=== PATIENT | male | born 1985 | race Caucasian/White ===

== ENCOUNTER 2023-06-24 10:11 | Emergency (ER) | payer OTHER, SELFPAY ==
--- NOTE | ~2023-06-24 | CT_ITS ---
EXAMINATION: CT facial & cervical spine wo DATE: 06/24/2023 10:53 INDICATION: Syncope. Head injury. TECHNIQUE: Computed tomography (CT) of the maxillofacial region and cervical spine was performed with out intravenous contrast. Automated exposure control and iterative reconstruction technique were empl oyed. The dose-length product was 762.31 mGy-cm. COMPARISON: None FINDINGS: MAXILLOFACIAL CT: There is mild mucosal thickening in the paranasal sinuses. There is leftward deviation of the nasal s eptum. There are nondisplaced fractures of the nasal bones. The mastoid air cells are normal. CERVICAL SPINE CT: Bone alignment is normal. Vertebral body heights are normal. Intervertebral disc heights are normal. The following disc levels are specifically discussed: C2-C3: There is severe right and moderate left uncovertebral joint osteoarthritis. There is mild bila teral facet joint osteoarthritis. There is no neural foraminal stenosis. There is no central canal st enosis. C3-C4: There is mild right and moderate left uncovertebral joint osteoarthritis. There is moderate ri ght and mild left facet joint osteoarthritis. There is mild left neural foraminal stenosis. There is no central canal stenosis. C4-C5: There is mild bilateral uncovertebral joint osteoarthritis. There is mild bilateral facet join t osteoarthritis. There is no neural foraminal stenosis. There is no central canal stenosis. C5-C6: There is mild bilateral uncovertebral joint osteoarthritis. There is mild bilateral facet join t osteoarthritis. There is no neural foraminal stenosis. There is no central canal stenosis. C6-C7: There is mild left uncovertebral joint osteoarthritis. There is severe right and mild left fac et joint osteoarthritis. There is mild right neural foraminal stenosis. There is no central canal david nosis. C7-T1: There is severe right and mild left uncovertebral joint osteoarthritis. There is mild bilatera l facet joint osteoarthritis. There is moderate right and mild left neural foraminal stenosis. There is no central canal stenosis. IMPRESSION: 1. Nondisplaced fractures of the nasal bones. 2. Mild cervical spondylosis. Reviewed, dictated and finalized at location A. RT COORDINATOR
--- NOTE | ~2023-06-24 | CT_ITS ---
EXAMINATION: CT brain wo con INDICATION: Head injury COMPARISON: 12/10/2017 TECHNIQUE: Standard unenhanced head CT. The dose-length product (DLP) was 681.00 mGy-cm. The mA was a djusted according to patient size. Iterative reconstruction technique was employed. FINDINGS: No intracranial hemorrhage, acute infarction, or abnormal mass lesion. The ventricles are n ormal. No abnormal mass effect or midline shift. The benitez-white matter differentiation is normal. The basal cisterns are patent. The orbits are normal. There are polyps or mucous retention cysts of the maxillary sinuses. There is a frontal scalp hematoma. IMPRESSION: 1. No acute intracranial abnormality. Reviewed, dictated and finalized at location B. OSITION PLAYER
--- NOTE | ~2023-06-24 | XR_ITS ---
EXAMINATION: XR wrist RT min 3V INDICATION: Right wrist pain TECHNIQUE: Four views of the right wrist are obtained. COMPARISON: None available FINDINGS: No fracture, dislocation, or subluxation. The bones, soft tissues, and joint spaces are nor mal. IMPRESSION: 1. No acute osseous abnormality. Reviewed, dictated and finalized at location B. R PRINTED CIRCUIT LAYOUT
[2023-06-24 10:20] VITALS: BP 142/71; PULSE 79; RESP 16; TEMP 36.6; O2SAT 100
--- NOTE | 2023-06-24 10:33 | ECG_ITS ---
Measurements Intervals [place] Rate: 78 P: 39 TN: 176 QRS: 26 QRSD: 106 T: 26 QT: 407 QTc: 464 Interpretive Statements SINUS RHYTHM NORMAL ELECTROCARDIOGRAM NO PREVIOUS ECG AVAILABLE FOR COMPARISON Electronically Signed On 06-24-2023 18:24:25 PERSONAL INJURY ATTORNEY by Shabbir Graham M.D.
--- NOTE | 2023-06-24 11:06 | ED.SYNCOPE ---
HPI - Syncope General Chief Complaint: Syncope Stated Complaint: syncope Time Seen by Provider: 06/24/23 10:13 Source: patient Mode of arrival: EMS Limitations: no limitations History of Present Illness HPI narrative: Patient is a 38 y/o male who presents to the ED via EMS with report of syncope. Patient reports he was picking up a family member at [facility] today and the nurse for his family member asked him to leave the room so she could change his family members bandages for her sutures. Patient left the room, but began feeling lightheaded, nauseous, sweaty. He states he called out for help, but the next thing he knew, he woke up on the ground. He did hit his head and sustained contusion to forehead and nose. Witnesses did confirm syncopal episode with 30 seconds to 1 minute LOC. no seizure-like activity. No postictal state. EMS was then called. Patient does still feel somewhat lightheaded currently, c/o headache, mild nausea, pain to R wrist. Denies neck or back pain, focal weakness or numbness, vision changes, chest pain, shortness of breath. Patient mentions he has had similar syncopal episodes in the past with exposure to blood. Related Data Allergies Allergy/AdvReac Type Severity Reaction Status Date / Time doxycycline Allergy Intermediate Unknown Verified 06/24/23 12:26 venom-honey bee Allergy Unknown Unknown Verified 06/24/23 12:26 milk Allergy Unknown Verified 06/24/23 12:26 shellfish derived Allergy Anaphylaxis Verified 06/24/23 12:26 wheat Allergy Unknown Verified 06/24/23 12:26 Penicillins AdvReac Itching Verified 06/24/23 12:26 Review of Systems Review of Systems: CONSTITUTIONAL: Denies fever, chills, or sweats. ENT: Denies vision changes CARDIOVASCULAR: Denies chest pain. RESPIRATORY: Denies dyspnea. GASTROINTESTINAL: See HPI MUSCULOSKELETAL: See HPI NEUROLOGIC: See HPI. All systems reviewed & are unremarkable except as noted in HPI and below PMFSH Social History Social History Smoking status: Never smoker Exam Narrative: GENERAL: Well appearing, morbidly obese with BMI 46.0, non-toxic, in no acute distress. HEAD: Normocephalic. Contusion to forehead with small abrasion, contusion to bridge of nose with minimal abrasion. No active bleeding. EENT: PERRL/EOMI, conjunctiva clear. Mild swelling and tenderness noted to bridge of nose. No septal hematoma or active epistaxis. NECK: Neck is supple. No midline spinal tenderness. RESPIRATORY: Airway patent, respirations nonlabored. Clear to auscultation bilaterally, no rales, rhonchi, wheezing. CARDIOVASCULAR: Regular rate and rhythm without murmurs, rubs, or gallops. MUSCULOSKELETAL: Moves all extremities. No gross deformities. Tenderness to palpation over right distal radius, no palpable deformities, no significant swelling or bruising. No midline thoracic or lumbar spinal tenderness. SKIN: Warm, dry, normal color. NEURO: A&O X3. Speech clear. Cranial nerves II-XII grossly intact. Steady gait. No ataxic movements. No focal neurologic deficits. Equal home worker no pronator drift. Strength equal in upper and lower extremities bilaterally. PSYCHIATRIC: Appropriate mood and affect. Normal interaction. Course Vital Signs Vital signs: Vital Signs Temperature 97.9 F 06/24/23 10:20 Pulse Rate 79 06/24/23 10:20 Respiratory Rate 16 06/24/23 10:20 Blood Pressure 142/71 H 06/24/23 10:20 Pulse Oximetry 100 06/24/23 10:20 Oxygen Delivery Room Air 06/24/23 10:20 Temperature 97.9 F 06/24/23 10:20 Pulse Rate 78 06/24/23 12:32 Respiratory Rate 16 06/24/23 12:32 Blood Pressure 118/66 06/24/23 12:32 Pulse Oximetry 99 06/24/23 12:32 Oxygen Delivery Room Air 06/24/23 10:20 MDM - Syncope MDM Narrative Medical decision making narrative: Patient presented to ED status post syncopal episode, associated with dizziness/lightheadedness and nausea, head i
[2023-06-24] MEDS: SODIUM CHLORIDE 0.9% IV 1,000 ML 999 ML IV CONT ×2 (11:07→11:08)
[2023-06-24] MEDS: ONDANSETRON INJ 4 MG/2 ML VIAL IV PUSH (11:08)
[2023-06-24 11:10] LABS: Glucose Point of Care 162 mg/dl (65-105)
[2023-06-24 11:16] LABS: Basophils Absolute Auto 0.1 K/mm3 (0.0-0.1); Basophils Percent Auto 0.6 % (0.2-1.2); Eosinophils Absolute Auto 0.2 K/mm3 (0-0.3); Eosinophils Percent Auto 2.7 % (0-4.4); Hematocrit 39.7 % (42.0-52.0); Hemoglobin 13.2 g/dL (14.0-18.0); Immature Granulocyte Absolute 0.02 K/mm3 (0.00-0.031); Immature Granulocyte Percent A 0.2 % (0-0.5); Lymphocytes Absolute Auto 1.67 K/mm3 (0.9-3.2); Lymphocytes Percent Auto 20.6 % (18.3-44.2); Mean Corpuscular HGB Conc 33.2 g/dl (32-36); Mean Corpuscular Hemoglobin 26.8 pg (26-34); Mean Corpuscular Volume 80.7 fl (80-100); Mean Platelet Volume 11.5 fl (7.4-10.4); Monocytes Absolute Auto 0.7 K/mm3 (0.1-0.6); Monocytes Percent Auto 8.3 % (2.6-8.5); Neutrophils Absolute Auto 5.5 K/mm3 (1.3-6.7); Neutrophils Percent Auto 67.6 % (45.5-73.1); Platelet Count Result 208 k/mm3 (150-375); Red Blood Count 4.92 M/mm3 (4.6-6.20); Red Cell Distribution Width 13.7 % (11.5-14.5); White Blood Count 8.1 K/mm3 (4.5-10.0)
[2023-06-24 11:30] LABS: Alanine Aminotransferase 36 U/L (6-50); Albumin Level 4.4 g/dL (3.5-5.1); Alkaline Phosphatase 72 U/L (38-126); Anion Gap 5 mmol/L (8-16); Aspartate Amino Transferase 31 U/L (17-59); Bilirubin,Total 1.2 mg/dL (0.2-1.3); Blood Urea Nitrogen 13 mg/dL (9-20); Calcium 9.4 mg/dL (8.4-10.2); Carbon Dioxide 31 mmol/L (22-30); Chloride 101 mmol/L (98-107); Estimated CRCL calculation 203 ml/min; Estimated Glomerular Filt Rate > 60; Glucose 153 mg/dL (65-110); Lactic Acid Reflex 2.1 mmol/L (0.7-2.0); Magnesium 1.7 mg/dL (1.6-2.3); Potassium 3.2 mmol/L (3.4-5.0); Sodium 137 mmol/L (137-145)
[2023-06-24 11:34] LABS: Prothrombin Time 13.4 Seconds (11.1-14.7)
[2023-06-24 11:41] LABS: Troponin I < 0.012 ng/mL (0.000-0.034)
[2023-06-24 12:32] VITALS: BP 118/66; PULSE 78; RESP 16; O2SAT 99
[2023-06-24] MEDS: ACETAMINOPHEN 500 MG TABLET 1000 MG PO (12:34)
[2023-06-24] MEDS: POTASSIUM CHLORIDE 20 MEQ ER TABLET 40 MEQ PO (12:34)
[2023-06-24] MEDS: MAGNESIUM SULF 2 GM/WATER 50ML 2 GM/50 ML BAG IVPB (12:35)
[2023-06-24 14:12] LABS: Reflex Lactic Acid Yes or No Add Lactic
[2023-06-24 14:52] LABS: Lactic Acid 1.1 mmol/L (0.7-2.0)
== END 2023-06-24 15:16 | disposition home or self-care (01) ==
PROVIDERS: Emergency Provider Physician Assistant
DX: R55 Syncope and collapse (principal); S02.2XXA Fracture of nasal bones, initial encounter for closed fracture; E87.6 Hypokalemia; E83.42 Hypomagnesemia; M47.812 Spondylosis without myelopathy or radiculopathy, cervical region; W18.39XA Other fall on same level, initial encounter
CPT/HCPCS: 36415; 70450; 70486; 72125; 73110; 80053; 82948; 83605; 83735; 84484; 85025; 85610; 85730; 93005; 96361; 96365; 96375; 99284; A9270; J2405; J3475; J7030